=== PATIENT | male | born 2000 | race Caucasian/White ===

== ENCOUNTER 2018-01-19 08:26 | Emergency (ER) | END 2018-01-19 08:57 | disposition home or self-care (01) ==

== ENCOUNTER 2018-11-22 07:44 | Emergency (ER) | payer BC ==
[~2018-11-22] VITALS: Ht 175.3 cm; Wt 78.2 kg
[~2018-11-22 07:44] MED LIST: AMOX500C2 PO; BEN25 PO; CETI1TAB6 PO
[2018-11-22 07:46] VITALS: Ht 175.3 cm; Wt 78.2 kg
[2018-11-22] MEDS ORDERED: CEPH-443 PO (09:20)
[2018-11-22] MEDS ORDERED: IBUP-1542 PO (09:20)
[2018-11-22] MEDS ORDERED: IBUPROFEN 600 MG TAB PO ONE (09:30)
[2018-11-22 10:29] VITALS: BP 118/64; PULSE 64; RESP 19
--- NOTE | 2018-11-22 12:30 | ERD ---
ER Documentation Chief Complaint Chief Complaint RT EAR PAIN X 1 DAY HPI 18-year-old man complains of 1 day right earache. He denies trauma, no blood or discharge from the EAC, no fevers or chills, no chest pain or shortness of breath, no complaints of neck pain or neck stiffness ROS All systems reviewed and are negative except as per history of present illness. Medications Home Meds Active Scripts Ibuprofen* (Motrin*) 600 Mg Tab, 600 MG PO Q8 PRN for PAIN AND/OR INFLAMMATION, #30 TAB Prov:CHRIS HER MD 11/22/18 Cephalexin* (Keflex*) 500 Mg Capsule, 500 MG PO QID for 7 Days, CAP Prov:CHRIS HER MD 11/22/18 Cetirizine/Pseudoephedrine (Zyrtec-D) 5-120 Mg Tab.er.12h, 1 TAB PO Q12, #20 TAB Prov:INOCENCIO SHINE PA-C 01/19/18 Amoxicillin* (Amoxicillin*) 500 Mg Cap, 500 MG PO BID for 10 Days, CAP Prov:INOCENCIO SHINE PA-C 01/19/18 Diphenhydramine Hcl* (Benadryl*) 25 Mg Cap, 25 MG PO Q6, #30 CAP Prov:REFUGIO MONTES 11/11/15 Allergies Allergies: Coded Allergies: No Known Allergy (Unverified , 01/19/18) PMhx/Soc History of Surgery: Yes (right ankle sx) Anesthesia Reaction: No Hx Neurological Disorder: No Hx Respiratory Disorders: No Hx Cardiac Disorders: No Hx Psychiatric Problems: No Hx Miscellaneous Medical Probl: Yes (ear infection) Hx Alcohol Use: No Hx Substance Use: No Hx Tobacco Use: Yes (hookah) Smoking Status: Current some day smoker Physical Exam Vitals Vital Signs Date Temp Pulse Resp B/P (MAP) Pulse Ox O2 O2 Flow FiO2 Time Delivery Rate 11/22/18 98.1 64 19 118/64 100 Room Air 10:29 (82) 11/22/18 98.2 66 18 121/65 97 07:46 (83) Physical Exam Const: Mild discomfort, afebrile HEENT: Bulging and erythema to the right tympanic membrane, tympanic membrane on the left is within normal limits, no EAC deformities, no mastoid bone tenderness, no Kernig sign Resp: Clear to auscultation bilaterally Cardio: Regular rate and rhythm, no murmurs Skin: No petechiae or rashes Back: No midline or flank tenderness Ext: No cyanosis, or edema Neur: Awake and alert x3, no focal deficits or facial asymmetry, pupils equal round reactive to light Psych: Normal Mood and Affect Results 24 hrs Current Medications Medications Dose Sig/Adarsh Start Time Status Last (Trade) Ordered Route PRN Stop Time Admin Dose Reason Admin Ibuprofen 600 mg ONCE ONCE 11/22/18 DC 11/22/18 (Motrin) PO 09:30 09:23 11/22/18 09:31 Procedures/MDM I administered ibuprofen 600 mg p.o. x1. Patient feels much better at this time, and vital signs are normal, symptoms have improved. I did give strict instructions to return to the ED if symptoms continue or worsen, patient will otherwise follow-up with primary care physician. Patient understood instructions and agreed to plan. Disclaimer: Inadvertent spelling and grammatical errors are likely due to EHR/dictation software use and do not reflect on the overall quality of patient care. Also, please note that the electronic time recorded on this note does not necessarily reflect the actual time of the patient encounter. Departure Diagnosis: Primary Impression: Acute otitis media Otitis media type: serous Laterality: right Recurrence: non-recurrent Qualified Codes: H65.01 - Acute serous otitis media, right ear Condition: Good Patient Instructions: Otitis Media, Abx Tx (Adult) CHRIS HER MD Nov 22, 2018 12:30
== END 2018-11-22 10:30 | disposition home or self-care (01) ==
LOC: FTE 07:44
DX: H65.01 Acute serous otitis media, right ear (principal); F17.210 Nicotine dependence, cigarettes, uncomplicated
CPT/HCPCS: 99283; Z7610